=== PATIENT | female | born 1945 | race Caucasian/White ===

== ENCOUNTER 2018-06-29 12:21 | Outpatient (CLI) | payer BC ==
[~2018-06-29 12:21] MED LIST: Gadobenate Dimeglumine 529 MG/1 ML (20ML VIAL) ONE
--- NOTE | 2018-06-29 14:43 | MRI ---
MRI BRAIN WITH AND WITHOUT CONTRAST: Multiplanar, multisequential imaging of brain obtained. INDICATION: Occlusion/stenosis left posterior cerebral artery stated as reason for exam. The patient also compla ins of dizziness. COMPARISON: No comparison study. FINDINGS: Ventricles have normal size and position given the degree of mild volume loss. Moderate to severe ch ronic ischemic white matter changes are noted in both cerebral hemispheres. There is no evidence of restricted diffusion. There is no evidence of mass, edema, or hemorrhage. N o evidence of cortical infarct. No abnormal parenchymal enhancement. The intracranial internal carotid arteries, proximal anterior cerebral arteries, and middle cerebral arteries show flow voids. The basilar artery is patent. Proximal and mid posterior cerebral arterie s show flow voids. Dural venous sinuses are patent. Paranasal sinuses and mastoids are clear. IMPRESSION: Moderate to severe chronic ischemic white matter changes are seen in both cerebral hemispheres. No a cute process identified. POS: [facility]
== END 2018-06-29 12:22 | disposition home or self-care (01) ==
LOC: SCSMRI 12:21
PROVIDERS: ATTEND Psychiatry & Neurology Neurology
DX: I66.22 Occlusion and stenosis of left posterior cerebral artery (principal)
CPT/HCPCS: 70553; 82565; A9579

== ENCOUNTER → 2020-06-17 | Day surgery (SDC) | payer BC ==
[~2020-06-17] MED LIST changes: -Gadobenate Dimeglumine 529 MG/1 ML (20ML VIAL) ONE; +Sodium Bicarbonate 2.5 MEQ/5 ML VIAL ONE
[2020-06-17 14:19] VITALS: BP 125/77; TEMP 98.4; BMI 20.5
--- NOTE | 2020-06-17 14:59 | ULT ---
Sonographic guided paracentesis HISTORY: Symptomatic ascites. FINDINGS: After explaining the procedure and answering all questions, sonographic survey showed a mod erate amount of free fluid throughout the abdomen. Sterile technique, buffered local anesthesia, sonographic guidance, and a right lower quadrant anteri or approach were used to carefully advance a 19-gauge Yueh needle and catheter into the free fluid. Catheter was left to drain a total volume of 2.7 L clear yellow liquid. Catheter was removed with minimal fluid remaining. Patient tolerated the procedure well and was dismi ssed in good condition. A portion of the fluid was sent to laboratory for analysis. IMPRESSION : Technically successful sonographic guided paracentesis. 2.7 L.
== END ==
LOC: ULT 12:01
PROVIDERS: ATTEND Internal Medicine Hematology & Oncology
DX: C80.1 Malignant (primary) neoplasm, unspecified (principal); R18.0 Malignant ascites; E78.5 Hyperlipidemia, unspecified; K21.9 Gastro-esophageal reflux disease without esophagitis; Z79.82 Long term (current) use of aspirin; Z79.899 Other long term (current) drug therapy; Z86.73 Personal history of transient ischemic attack (TIA), and cerebral infarction without residual deficits; Z88.0 Allergy status to penicillin; Z88.8 Allergy status to other drugs, medicaments and biological substances; Z91.013 Allergy to seafood
CPT/HCPCS: 49083; 88112

== ENCOUNTER 2020-06-18 13:12 | Outpatient (CLI) | payer BC ==
--- NOTE | 2020-06-18 15:34 | CT ---
CT OF CHEST AND ABDOMEN AND PELVIS PERFORMED WITH CONTRAST ENHANCEMENT: 06/18/20 HISTORY: Pain and swelling since February. 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 COMPARISON: MRI study of 05/28/20/. The thyroid gland is normal in appearance. There is no significant mediastinal or hilar lymphadenopat hy. The ascending aorta is prominent at 4.2 cm. The lungs are clear of any infiltrative process. There are no pulmonary nodules identified. There is a mild left sided effusion. There is atelectatic change in the lung bases. There is a large hiatal he rnia noted. CT OF ABDOMEN PERFORMED WITH CONTRAST ENHANCEMENT: Small hemangioma is described in the right lobe of the liver on prior MRI study. A small hypoechoic f ocus in the right lobe corresponding to this location is seen but is not definitive on CT. It measure s less than 1 cm in size, ill-defined. The spleen and pancreas regions appear unremarkable other than the slightly dilated pancreatic duct. The gallbladder is minimally distended. Right and left adrenal glands and right and left kidneys are normal in size. No obstruction. There is no significant periaortic or mesenteric adenopathy. There is ascites present. There is evidence of p eritoneal seeding. Omental fat in the left upper quadrant of the abdomen and right pericolic gutter s hows very dirty appearance and within the pelvis does depreciate on axial image 105 is a more promine nt peritoneal nodule measuring 10 mm. There is some enhancement to the peritoneum also seen. Some of the changes along the right side of the abdomen and in the right pericolic gutter region could very w ell be secondary to the patient's fairly recent paracentesis and I suspect that these changes are mos t likely on the basis of the previous paracentesis as these changes are more extraperitoneal and are probably related to the recent paracentesis. CT OF PELVIS PERFORMED WITH CONTRAST ENHANCEMENT: No pelvic masses are demonstrated. The ascites is again noted. No significant pelvic lymphadenopathy. IMPRESSION: 1. Moderate ascites with evidence for peritoneal carcinomatosis. 2. Small left pleural effusion. 3. Large hiatal hernia. POS: [facility] [place]
== END 2020-06-18 13:13 | disposition home or self-care (01) ==
LOC: SCSCT 13:12
PROVIDERS: ATTEND Internal Medicine Hematology & Oncology
DX: C78.6 Secondary malignant neoplasm of retroperitoneum and peritoneum (principal); C56.9 Malignant neoplasm of unspecified ovary; R18.8 Other ascites; K44.9 Diaphragmatic hernia without obstruction or gangrene; J90 Pleural effusion, not elsewhere classified
CPT/HCPCS: 71260; 74177

== ENCOUNTER 2020-07-10 10:24 | Outpatient (CLI) | payer BC ==
--- NOTE | 2020-07-10 15:04 | PET ---
PET CT: HISTORY: Metastatic ovarian cancer. Exam requested for initial staging. TECHNIQUE: PET scanning with CT attenuation correction was performed from the base of the brain through the prox imal thighs following the intravenous administration of 10.2 mCi [id number]. FINDINGS: No roger hypermetabolism is seen in the neck, chest, axilla, abdomen, pelvis, or inguinal regions. No hypermetabolic pulmonary nodules, liver, adrenal, or skeletal lesions are seen. In the left lower quadrant of the lower anterior abdominal wall, is an area of increased uptake with a SUV of 8. The CT scan used for attenuation correction demonstrates inflammatory change and a small fluid collection in the musculature and a tiny amount of air in the subcutaneous fat. These findings are likely secondary to intervention in this region. The possibility of infection should be considere d. There is increased uptake in thickened peritoneum of the lower right anterior abdomen with an SUV of 8. There is also a band-like area of increased uptake in the peritoneal cavity anteriorly in the lowe r abdomen/upper pelvis with a SUV of 6. There is physiologic activity in the GI and tracts, and the visualized portions of the brain. CT scan used for attenuation correction demonstrates no evidence of pleural effusions. There has been interval improvement in the ascites since CT scan of 06/18/2010. There is a small to moderate amount of fluid in the pelvis. IMPRESSION: 1. Findings are suspicious for peritoneal carcinomatosis. 2. Findings in the left lower quadrant are likely due to regional intervention. The possibility of i nfection cannot be excluded. D/W Dr Proctor over the phone @ 1430 hrs on 07/10/2020. POS: [facility]
== END 2020-07-10 10:25 | disposition home or self-care (01) ==
LOC: PET 10:24
PROVIDERS: ATTEND Internal Medicine Hematology & Oncology
DX: C56.9 Malignant neoplasm of unspecified ovary (principal); C78.6 Secondary malignant neoplasm of retroperitoneum and peritoneum
CPT/HCPCS: 78815; A9552